=== PATIENT | female | born 1940 | race Caucasian/White ===

== ENCOUNTER 2017-08-24 10:53 | Emergency (ER) | payer MEDICARE ==
[2017-08-24 11:34] LABS: BASO % 0.6 % (0.0-1.0); EOS # 0.2 10^3/uL (0.0-0.50); EOS % 4.5 % (0.0-3.0); HEMATOCRIT 43.4 % (36.0-47.0); HEMOGLOBIN 14.3 g/dl (12.0-15.5); IMMATURE GRANULOCYTE % 0.4 % (0-3.0); LYMPH # 1.2 10^3/uL (1.5-4.5); MEAN CORPUSCULAR HGB CONC 32.9 g/dl (32.0-36.5); MONO # 0.6 10^3/uL (0.0-0.8); MONO % 11.5 % (0.0-5.0); NEUTROPHILS # 2.9 10^3/uL (1.8-7.7); PLATELET COUNT, AUTOMATED 144 10^3/uL (150-450); RED BLOOD COUNT 4.77 10^6/uL (4.00-5.40); RED CELL DISTRIBUTION WIDTH 13.7 % (11.5-14.5); WHITE BLOOD COUNT 4.9 10^3/uL (4.0-10.0)
[2017-08-24] MEDS: NS 500 ML IV (11:38)
[2017-08-24 12:04] LABS: ANION GAP 3 MEQ/L (8-16); BLOOD UREA NITROGEN 23 MG/DL (7-18); CALCIUM LEVEL 8.5 MG/DL (8.8-10.2); CARBON DIOXIDE LEVEL 29 MEQ/L (21-32); CHLORIDE LEVEL 108 MEQ/L (98-107); CPK CREATINE PHOSPHOKINASE 81 U/L (26-192); CREATININE FOR GFR 1.09 MG/DL (0.55-1.30); GLOMERULAR FILTRATION RATE 52.1 (>39); GLUCOSE, FASTING 83 MG/DL (70-100); POTASSIUM SERUM 4.5 MEQ/L (3.5-5.1); SODIUM LEVEL 140 MEQ/L (136-145); TROPONIN I < 0.02 NG/ML (< 0.10)
[2017-08-24 12:07] LABS: CK-MB VALUE MASS 4.5 NG/ML (<3.6); MB/CK RELATIVE INDEX 5.55 (< OR =4)
[2017-08-24] MEDS ORDERED: ISOVUE-370 76% 100ML VIAL (Q9967) As Ordered (12:07)
[2017-08-24 13:38] LABS: INR 1.24; PROTHROMBIN TIME 15.9 SECONDS (12.4-14.5)
[2017-08-24 13:39] LABS: PARTIAL THROMBOPLASTIN TIME 45.8 SECONDS (26.8-37.9)
[2017-08-24 13:41] LABS: D-DIMER QUANT 422.3 ng/ml (<500)
[2017-08-24 14:39] LABS: ALBUMIN 3.6 GM/DL (3.2-5.2); ALBUMIN/GLOBULIN RATIO 1.16 (1.00-1.93); ALKALINE PHOSPHATASE 61 U/L (45-117); ALT/SGPT 17 U/L (12-78); AST/SGOT 16 U/L (7-37); BILIRUBIN,TOTAL 0.5 MG/DL (0.2-1.0); FREE T4 0.94 NG/DL (0.76-1.46); LIPASE 178 U/L (73-393); THYROID STIMULATING HORMONE 0.781 uIU/ML (0.358-3.740); TOTAL PROTEIN 6.7 GM/DL (6.4-8.2)
[2017-08-24 16:21] LABS: CPK CREATINE PHOSPHOKINASE 60 U/L (26-192); TROPONIN I < 0.02 NG/ML (< 0.10)
[2017-08-24 16:22] LABS: CK-MB VALUE MASS 3.2 NG/ML (<3.6); MB/CK RELATIVE INDEX 5.33 (< OR =4)
== END 2017-08-24 17:37 | disposition home or self-care (01) ==
LOC: M ED 10:53
DX: R07.9 Chest pain, unspecified (principal); I48.91 Unspecified atrial fibrillation; F41.9 Anxiety disorder, unspecified; J38.3 Other diseases of vocal cords; K44.9 Diaphragmatic hernia without obstruction or gangrene; J98.4 Other disorders of lung; Z79.899 Other long term (current) drug therapy; Z88.2 Allergy status to sulfonamides
CPT/HCPCS: Q9967

== ENCOUNTER 2021-01-31 11:39 | Emergency (ER) | payer MEDICARE ==
[~2021-01-31] VITALS: Ht 172.7 cm; Wt 75.0 kg
[~2021-01-31 11:39] MED LIST: CITR500T PO; METO1TAB32 PO; VITA200025 PO; XARE20TA PO
[2021-01-31 11:40] VITALS: BP 131/65
--- OUTSIDE RECORDS SUMMARY | 2021-01-31 11:45 | CCD ---
Author Author [facility] Address Unknown Phone Unavailable Support Name Relationship Address Phone RE Next Of Kin Unknown Unavailable HUANG GARDUNO Next Of Kin [address] [place] [address] TELMA GARDUNO Next Of Kin [address] [place] [address] Re-disclosure Warning The records that you are about to access may contain information from federally-assisted alcohol or drug abuse programs. If such information is present, then the following federally mandated warning applies: This information has been disclosed to you from records protected by federal confidentiality rules (42 CFR part 2). The federal rules prohibit you from making any further disclosure of this information unless further disclosure is expressly permitted by the written consent of the person to whom it pertains or as otherwise permitted by 42 CFR part 2. A general authorization for the release of medical or other information is NOT sufficient for this purpose. The Federal rules restrict any use of the information to criminally investigate or prosecute any alcohol or drug abuse patient.The records that you are about to access may contain highly sensitive health information, the redisclosure of which is protected by Article 27-F of the [facility] Public Health law. If you continue you may have access to information: Regarding HIV / AIDS; Provided by facilities licensed or operated by the [facility] Office of Mental Health; or Provided by the [facility] Office for People With Developmental Disabilities. If such information is present, then the following [facility] mandated warning applies: This information has been disclosed to you from confidential records which are protected by state law. State law prohibits you from making any further disclosure of this information without the specific written consent of the person to whom it pertains, or as otherwise permitted by law. Any unauthorized further disclosure in violation of state law may result in a fine or nursing home sentence or both. A general authorization for the release of medical or other information is NOT sufficient authorization for further disc losure. Family History Family Member Name Family Member Gender Family Member Status Date o f Status Description Data Source(s) Unknown Unknown Problem [facility] ([facility]) Medications No Information Insurance Providers Payer name Policy type / Coverage type Policy ID Covered republican ID Covered republican's relationship to cottrell Policy [place] Plan Information [employer] Plan Commercial [id number] Self [id number] [employer] O [id number] S [id number] [employer] [id number] SP [id number] [employer] PLAN [id number] 18 [id number] Problems, Conditions, and Diagnoses No Information Surgeries/Procedures No Information Results No Information Social History No Information
--- NOTE | 2021-01-31 13:18 | REP ---
INDICATION: FALL ON THINNERS/PAIN COMPARISON: None. TECHNIQUE: AP and lateral views of the right tibia/fibula. FINDINGS: There is a comminuted multipartite fracture of the mid fibular shaft. Proximal fibula at the knee and distal fibula at the ankle are in normal position. Tibia is intact. IMPRESSION: Comminuted nondisplaced fracture involving the mid fibular shaft. <Electronically signed by Kong Mcgill > 01/31/21 7267
--- OUTSIDE RECORDS SUMMARY | 2021-01-31 13:35 | CCD ---
Author Author [facility] Address Unknown Phone Unavailable Support Name Relationship Address Phone RE Next Of Kin Unknown Unavailable HUANG GARDUNO Next Of Kin [address] [place] [address] ROSA MARIA GARDUNO Next Of Kin [address] [place] [address] Re-disclosure Warning The records that you are [...] is protected by Article 27-F of the [facility] Public Health law. If you continue you may have access to information: Regarding HIV / AIDS; Provided by facilities licensed or operated by the [facility] Office of Mental Health; or Provided by the [facility] Office for People With Developmental Disabilities. If such information is present, then the following [facility] mandated warning applies: This information has been [...] law may result in a fine or care home sentence or both. A general authorization [...] type / Coverage type Policy ID Covered green party ID Covered green party's relationship to cottrell Policy [place] Plan Information [employer] [id number] SP [id number] [employer] Plan Commercial [id number] Self [id number] [employer] O [id number] S [id number] [employer] PLAN [id number] 18 [id number] Problems, Conditions, and Diagnoses No Information Surgeries/Procedures No Information Results No Information Social History No Information
--- NOTE | 2021-01-31 14:52 | REP ---
INDICATION: r/o dvt RLE, R calf pain s/p fall, h/o afib on xarelto COMPARISON: None. TECHNIQUE: Villalobos scale and color Doppler evaluation using linear high frequency transducer. FINDINGS: Ultrasound examination of the right lower extremity deep venous structures from the common femoral vein through the calf/ankle to include the peroneal, and tibial veins demonstrates normal compressibility flow and wave patterns in response to respiration and augmentation. There is no evidence for deep venous thrombosis. Contralateral CFV is patent and normal. IMPRESSION: No evidence for deep venous thrombosis. <Electronically signed by Kong Mcgill > 01/31/21 1741
--- NOTE | 2021-01-31 15:01 | REP ---
INDICATION: r/o ankle injury with mid fibular fx (maalexusuve fx) COMPARISON: None. TECHNIQUE: AP, lateral, bilateral oblique views. FINDINGS: No acute fracture or dislocation. Skeletal structures and joint spaces are intact and normal. Ankle mortise appears stable. No subcutaneous emphysema or radiodense foreign body. Incidental small calcaneal heel spur. IMPRESSION: No acute fracture or dislocation. <Electronically signed by Kong Mcgill > 01/31/21 [id number]
--- NOTE | 2021-01-31 15:37 | CR ---
CONSULTATION DATE: 01/31/2021 CHIEF COMPLAINT: Right mid shaft fibula fracture. HISTORY OF PRESENT ILLNESS: I was called on consultation by Hope, the Qualified Medical Practitioner at [facility] ED today at approximately 2:25 p.m. The patient apparently slipped, fell, and landed directly on the lateral aspect of the leg on some rocks yesterday. She presented to the emergency department and was found to have a mid shaft fibula fracture. PHYSICAL EXAMINATION: Per the Qualified Medical Provider, she states that this is a closed neurovascularly intact injury. IMAGING: Radiographs were reviewed of the tibia and fibula. AP and lateral radiographs were reviewed. This shows a slightly comminuted multi-part type fracture, mid fibula shaft, no obvious shortening. The tibia is intact. Impression from the radiologist indicates a comminuted nondisplaced fracture involving the mid fibula shaft. ASSESSMENT AND PLAN: This is a 80-year-old female with an isolated mid fibula shaft fracture. I recommend to obtain ankle x-rays to ensure that this is not a Maisonneuve type equivalent or syndesmosis related ankle instability type injury pattern. As long as this is an isolated fracture of the mid fibula shaft with no obvious involvement of the tibia, then I recommend partial weightbearing, elevation, rest, crutches, posterior splint with the ankle in neutral, and follow up with myself in 5-7 days. I have communicated this directly to the Qualified Medical Practitioner at [facility] ED and to put my name on the follow up paperwork. She understands and had no further questions.
== END 2021-01-31 15:50 | disposition home or self-care (01) ==
LOC: M ED 11:39
DX: S82.454A Nondisplaced comminuted fracture of shaft of right fibula, initial encounter for closed fracture (principal); S80.11XA Contusion of right lower leg, initial encounter; R22.41 Localized swelling, mass and lump, right lower limb; W01.0XXA Fall on same level from slipping, tripping and stumbling without subsequent striking against object, initial encounter; Y92.410 Unspecified street and highway as the place of occurrence of the external cause; Y93.9 Activity, unspecified; Y99.9 Unspecified external cause status; M77.31 Calcaneal spur, right foot; I48.91 Unspecified atrial fibrillation; A69.20 Lyme disease, unspecified; Z79.899 Other long term (current) drug therapy